=== PATIENT | female | born 1965 | race Caucasian/White ===

== ENCOUNTER 2025-03-05 10:33 | Emergency (ER) | payer BC ==
[2025-03-05 10:47] VITALS: BP 104/66; PULSE 65
[2025-03-05] MEDS: cefTRIAXone 1 GM, Lidocaine 1% 2.1 ML IM ONE (11:02)
== END 2025-03-05 11:06 | disposition home or self-care (01) ==
LOC: DL.ED 10:33
DX: H66.002 Acute suppurative otitis media without spontaneous rupture of ear drum, left ear (principal); Z88.8 Allergy status to other drugs, medicaments and biological substances; Z88.2 Allergy status to sulfonamides; Z79.899 Other long term (current) drug therapy
CPT/HCPCS: 96372; 99283; J0696; J2003